=== PATIENT | male | born 1985 | race Caucasian/White ===

== ENCOUNTER 2018-08-07 18:03 | Emergency (ER) | payer OTHER ==
[~2018-08-07] VITALS: Ht 170.2 cm; Wt 80.3 kg
[2018-08-07] MEDS ORDERED: CLONAZEPAM2 M1 (18:27)
[2018-08-07] MEDS ORDERED: DEPAKOTE ER250 MG (18:27)
[2018-08-07] MEDS ORDERED: LEXAPRO20 MG (18:28)
[2018-08-07] MEDS ORDERED: RESTORIL30 M1 (18:28)
== END 2018-08-07 20:17 | disposition home or self-care (01) ==
LOC: ER 18:03 → EDSEX 18:16 → ER 20:17
DX: R07.89 Other chest pain (principal); F41.8 Other specified anxiety disorders